=== PATIENT | male | born 1980 | race Asian ===

== ENCOUNTER 2021-11-16 07:51 | Outpatient (CLI) | payer OTHER, BC, SELFPAY | END 2021-11-16 07:52 | disposition home or self-care (01) | PROVIDERS: Visit Provider Family Medicine | DX: S19.9XXA Unspecified injury of neck, initial encounter (principal); S29.9XXA Unspecified injury of thorax, initial encounter; V43.63XA Car passenger injured in collision with pick-up truck in traffic accident, initial encounter; Y92.488 Other paved roadways as the place of occurrence of the external cause | CPT/HCPCS: A0425; A0429 ==

== ENCOUNTER 2021-11-16 08:12 | Emergency (ER) | payer OTHER, BC, SELFPAY ==
[2021-11-16 08:18] VITALS: BP 132/86; PULSE 99; RESP 18; TEMP 36.6; O2SAT 99; BMI 24.7
[2021-11-16 08:31] VITALS: BP 130/88; PULSE 56; RESP 16; O2SAT 99
--- NOTE | 2021-11-16 08:34 | CRLHL7_ITS ---
For Patients: As a result of the Century Cures Act, medical imaging exams and procedure reports are released immediately into your electronic medical record. You may view this report before your referring provider. If you have questions, please contact your health care provider. INDICATION: Trauma TECHNIQUE: Two view chest. FINDINGS: The lungs are clear. The heart, mediastinum and pulmonary vessels are of normal size. There is no evidence of pleural disease. IMPRESSION: Negative chest. Dictated by Payton Alejandra MD @ 11/16/2021 10:00:43 AM (Electronically Signed)
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
--- NOTE | 2021-11-16 08:34 | CRLHL7_ITS ---
For Patients: As a result of the Cures Act, medical imaging exams and procedure reports are released immediately into your electronic medical record. You may view this report before your referring provider. If you have questions, please contact your health care provider. Indication: Trauma Technique: Four views left femur Comparison: No comparison Findings: Normal alignment. No acute fracture seen. Dictated by Payton Alejandra MD @ 11/16/2021 10:01:41 AM (Electronically Signed)
--- NOTE | 2021-11-16 08:34 | CRLHL7_ITS ---
For Patients: As a result of the Cures Act, medical imaging exams and procedure reports are released immediately into your electronic medical record. You may view this report before your referring provider. If you have questions, please contact your health care provider. Indication: Trauma Technique: Two views left knee Comparison: No compares Findings: Normal alignment. No acute fractures. No large effusion seen. Dictated by Payton Alejandra MD @ 11/16/2021 10:02:24 AM (Electronically Signed)
[2021-11-16 08:40] VITALS: BP 130/89; PULSE 56; RESP 16; O2SAT 99
[2021-11-16] MEDS: ACETAMINOPHEN 500 MG TABLET 1000 MG PO (08:46)
[2021-11-16 08:50] VITALS: BP 129/93; PULSE 56; RESP 16; O2SAT 99
[2021-11-16 09:00] VITALS: BP 124/86; PULSE 54; RESP 16; O2SAT 100
--- NOTE | 2021-11-16 09:19 | ED.NURSE ---
pt declines iv, I don't like needles, I had cancer. pt agreeable to lab draw. pt up to br independent, states no pain in L leg. pt at bedside
[2021-11-16 09:20] LABS: Basophils Percent Auto 0.6 % (0.0-3.0); Eosinophils Percent Auto 2.2 % (0.0-7.0); Hematocrit 42.5 % (37.0-53.0); Hemoglobin* 13.3 gm/dL (13.5-17.5); Immature Granulocytes Abs Auto 0.01 K/uL (0.00-0.30); Lymphocytes Percent Auto 24.8 % (20-44); Mean Corpuscular HGB Conc 31 gm/dL (32-36); Mean Corpuscular Hemoglobin 23 pg (26-34); Mean Corpuscular Volume 73 fL (80-100); Monocytes Percent Auto 7.7 % (0.0-11.0); Neutrophils Percent Auto 64.4 % (42.0-72.0); Platelet Count* 180 K/uL (140-440); RDW Coefficient of Variation % 13.9 % (11.5-15.5); Red Blood Count 5.85 m/uL (4.30-5.90); White Blood Count* 3.63 K/uL (4.50-11.00)
[2021-11-16 09:22] LABS: Slide Review Reflex No
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
[2021-11-16 09:33] LABS: Chloride* 105 mmol/L (96-114); Sodium* 139 mmol/L (135-149)
[2021-11-16 09:36] LABS: Carbon Dioxide* 28 mmol/L (20-32); Creatinine* 0.9 mg/dL (0.5-1.5); Est. Creatinine Clearance* 99.44; Estimated Glomerular Filt Rate 111 ml/min; Potassium* 4.3 mmol/L (3.6-5.1)
[2021-11-16 09:37] LABS: Blood Urea Nitrogen* 15 mg/dL (5-24); Glucose* 101 mg/dL (60-115)
[2021-11-16 10:05] LABS: Troponin I* < 0.01 ng/mL (0.01-0.04)
== END 2021-11-16 11:50 | disposition home or self-care (01) ==
PROVIDERS: Emergency Provider Family Medicine
DX: M79.605 Pain in left leg (principal); V49.88XA Car occupant (driver) (passenger) injured in other specified transport accidents, initial encounter; Y92.411 Interstate highway as the place of occurrence of the external cause
CPT/HCPCS: 36415; 71046; 72170; 73552; 73560; 76604; 76705; 80048; 84484; 85025; 93005; 93308; 99285; 99291; A9270; G0390